=== PATIENT | female | born 1970 | race Caucasian/White ===

== ENCOUNTER 2018-10-02 09:25 | Day surgery (SDC) | payer OTHER ==
[2018-10-01 10:09] VITALS: BMI 28.2
--- NOTE | 2018-10-02 09:05 | HP ---
History & Physical Update - History History: No Change (H&P reviewed and is consistent with 09/27/18 H&P Consent signed and witnessed Understands the procedure is a contraindication to childbearing) - Physical Physical: No Change - Assessment Assessment: No Change - Plan Plan: No Change
--- NOTE | 2018-10-02 09:06 | OP ---
Operative Note - Note: Operative Date: 10/02/18 Pre-Operative Diagnosis: 48yo P0 with Adenomyosis, metrorrhagia Operation: Hysteroscopy, D&C, Endometrial ablation Findings: 1. Large globular uterus 2. Denuded endometrium Post-Operative Diagnosis: Same as Pre-op Surgeon: Amanda Watts Anesthesiologist/TOBACCO SHAKER: Corwin Sewell Anesthesia: MAC Estimated Blood Loss (mls): 5 Instrument used (Debridements only): Genesys Drains & Tubes with Location: Fluid defficit - 230cc Drains, Volume Out (mls): 10 Fluid Volume Replaced (mls): 600 Operative Report Dictated: Yes
[~2018-10-02 09:25] MED LIST: ELECTROLYTE-148 SOLN 1,000 ML IV SCH; IBUPROFEN 600 MG TABLET (FP) PO PRN; IBUPROFEN 800 MG/8 ML IJ IVPB PRN; ONDANSETRON 4 MG/2 ML VIAL IVPUSH PRN; oxyCODONE HCL 5 MG TABLET PO PRN
[2018-10-02] MEDS ORDERED: MIDAZOLAM HCL 2 MG/2 ML SINGLE DOSE VIAL ONE (10:32)
[2018-10-02] MEDS ORDERED: LACTATED RINGERS SOLUTION 1,000 ML IV SCH (11:45)
[2018-10-02] MEDS ORDERED: KETOROLAC TROMETHAMINE 30 MG/1 ML VIAL IM ONE (14:06)
[2018-10-02] MEDS ORDERED: KETOROLAC TROMETHAMINE 30 MG/1 ML VIAL ONE (14:09)
[2018-10-02 15:22] VITALS: BP 120/82; PULSE 66; TEMP 98
--- NOTE | 2018-10-02 16:21 | OP ---
DATE OF OPERATION: DATE OF DICTATION: 10/02/2018 PREOPERATIVE DIAGNOSIS: A 48-year-old para 0 with adenomyosis and metrorrhagia. OPERATION PERFORMED: Hysteroscopy, dilatation and curettage, endometrial ablation. POSTOPERATIVE DIAGNOSIS: A 48-year-old para 0 with adenomyosis and metrorrhagia. FINDINGS: A large globular uterus, likely significant for adenomyosis and denuded endometrium. SURGEON: Amanda Watts MD ANESTHESIOLOGIST: SAMARIA Benoit ANESTHESIA: MAC. DESCRIPTION OF PROCEDURE: After assuring informed consent and making sure that the patient understands that after this procedure it is not recommended to attempt , consent was witnessed. The patient was brought to the operating room , where she was placed in the dorsal supine position. The perineum and vagina were prepped and draped in sterile fashion. The cervix was visualized by placing Rosenthal retractors into the vagina. The cervix was articulated with a single-tooth tenaculum and dilated with DeLee dilators to accommodate a 6.3-mm Symphion hysteroscope. Symphion hysteroscope was assembled, white balanced and primed, and was advanced into the uterus without any difficulty. Intrauterine contents were visualized. Bilateral ostia were visualized, and the above findings were documented. Subsequently, there were no fibroids or polyps noted inside the uterine cavity. The Symphion hysteroscope was removed. A sharp curette was used to obtain endometrial curettings. Subsequently, Genesys hysteroscope and the ablation unit were assembled, primed and inserted into the uterine cavity. Full ablation cycle was performed. Excellent change of color was noted inside the uterine cavity. Subsequently, instruments were removed from uterus, cervix and vagina. Excellent hemostasis was noted. Instrument and sponge counts were correct x2. Estimated blood loss was 5 mL. Fluid deficit was 230 mL. The patient drained 10 mL of urine and received 600 mL of IV fluids, and brought safe and extubated into the recovery room. Mabel [id number] MTDD
--- NOTE | 2018-10-03 16:42 | PATH ---
Surgical Pathology Report Patient Name: WILLIE CRUZ [facility]. Rec. #: [id number] /Age/Gender: 1970 (Age: 48) / F Account: [id number] Location: [facility] SUR[facility] Taken: 10/02/2018 Received: 10/02/2018 Reported: 10/03/2018 Physicians: Amanda Watts M.D. Specimen(s) Received ENDOMETRIAL CURETTINGS Clinical History Endometriosis, abnormal uterus and vaginal bleeding Final Diagnosis ENDOMETRIAL CURETTINGS: FRAGMENTS OF WEAKLY PROLIFERATIVE ENDOMETRIUM WITH FOCAL EOSINOPHILIC SYNCYTIAL PAPILLARY CHANGE. ENDOCERVICAL TISSUE WITH SQUAMOUS METAPLASIA. Electronically Signed Herminio Metcalf M.D. Gross Description Received in formalin labeled "endometrial curetting," is a 2.3 x 1.8 x 0.3 cm aggregate of skelton soft tissue fragments admixed with mucus and blood clot. The formalin is filtered and the specimen is entirely submitted in one cassette. /10/02/2018 saudi10/02/2018
== END 2018-10-02 15:10 | disposition home or self-care (01) ==
LOC: JASU-SURG 09:25
PROVIDERS: ATTEND Obstetrics & Gynecology
PROC: 0U5B8ZZ Destruction of Endometrium, Via Natural or Artificial Opening Endoscopic (ICD-10-PCS; principal; 2018-10-02 10:30)
PROC: 0UDB7ZX Extraction of Endometrium, Via Natural or Artificial Opening, Diagnostic (ICD-10-PCS; 2018-10-02 10:30)
DX: N92.1 Excessive and frequent menstruation with irregular cycle (principal); N80.0 Endometriosis of uterus
CPT/HCPCS: 84703; 88305-TC; 94760